=== PATIENT | female | born 1930 | race Caucasian/White ===

== ENCOUNTER 2019-10-31 19:04 | Inpatient (IN) | payer MEDICARE ==
--- NOTE | 2019-10-31 19:31 | ER Document Report ---
ED Medical Screen (RME) - General Chief Complaint: Shortness Of Breath Stated Complaint: DIZZY,SHOULDER PAIN,WEAKNESS Time Seen by Provider: 10/31/19 19:24 Mode of Arrival: Ambulatory Information source: Patient Notes: 89-year-old female presented to ED for complaint of body aches chills sweats and short of breath. She states she was having pain in both shoulders but that is resolved now. She does have a history of A. fib COPD high blood pressure and cholesterol. She states she did take Tylenol that might be why her shoulder is no longer hurt. She is alert oriented respirations regular nonlabored speaking in full sentences. Her daughter states that they think she might be a little dehydrated. Her daughter states that the daughter's was home with her today and stated that she has been sleepy all day and has not been able to stay awake. I have greeted and performed a rapid initial assessment of this patient. A comprehensive ED assessment and evaluation of the patient, analysis of test results and completion of medical decision making process will be conducted by an additional ED providers. Physical Exam - Vital signs Vitals: Temp Pulse Resp BP Pulse Ox 97.8 F 97 16 86/47 L 92 10/31/19 19:18 10/31/19 19:18 10/31/19 19:18 10/31/19 19:18 10/31/19 19:18 Course - Vital Signs Vital signs: Temp Pulse Resp BP Pulse Ox 97.8 F 97 16 86/47 L 92 10/31/19 19:18 10/31/19 19:18 10/31/19 19:18 10/31/19 19:18 10/31/19 19:18
[2019-10-31 20:29] LABS: ABSOLUTE EOSINOPHILS # (AUTO) 0.1 10^3/uL (0.0-0.6); ABSOLUTE LYMPHOCYTES (AUTO) 0.7 10^3/uL (0.5-4.7); ABSOLUTE MONOCYTES (AUTO) 0.8 10^3/uL (0.1-1.4); ABSOLUTE NEUT (AUTO) 6.7 10^3/uL (1.7-8.2); BASOPHILS % (AUTO) 0.3 % (0-2); HEMATOCRIT 36.6 % (36.0-47.0); HEMOGLOBIN 12.4 g/dL (12.0-15.5); LYMPHOCYTES % (AUTO) 8.2 % (13-45); MEAN CORPUSCULAR HEMOGLOBIN 31.6 pg (27.0-33.4); MEAN CORPUSCULAR HGB CONC 33.9 g/dL (32.0-36.0); MEAN CORPUSCULAR VOLUME 93 fl (80-97); PLATELET COUNT 121 10^3/uL (150-450); RED BLOOD COUNT 3.93 10^6/uL (3.72-5.28); RED CELL DISTRIBUTION WIDTH 12.4 % (11.5-14.0); SEGMENTED NEUTROPHILS % (AUTO) 80.5 % (42-78); TOTAL CELLS COUNTED % (AUTO) 100 %; WHITE BLOOD COUNT 8.4 10^3/uL (4.0-10.5)
--- NOTE | 2019-10-31 20:30 | RADIOLOGY REPORT (SQ) ---
EXAM DESCRIPTION: XR CHEST 2 VIEWS COMPLETED DATE/TME: 10/31/2019 19:34 CLINICAL HISTORY: 89 years, Female, short of breath COMPARISON: None. NUMBER OF VIEWS: Two TECHNIQUE: Frontal and lateral radiographs were acquired LIMITATIONS: None. FINDINGS: Cardiac pericardial silhouette appears slightly enlarged. Mediastinal contours are normal. Bandlike opacity is noted about the retrocardiac left lower lobe, likely indicating atelectasis or scar. Lungs are otherwise clear. No pleural effusion or pneumothorax. There is mild S-shaped curvature of the thoracolumbar spine. Postsurgical changes of right reverse total shoulder arthroplasty are noted. IMPRESSION: No acute disease. copyright 2010 [employer]- All Rights Reserved
[2019-10-31 20:39] LABS: INTERNATIONAL RATION (INR) 2.03; PROTHROMBIN TIME 23.2 SEC (11.4-15.4)
[2019-10-31 20:40] LABS: PARTIAL THROMBOPLASTIN TIME 41.4 SEC (23.5-35.8)
[2019-10-31 20:52] LABS: ALBUMIN 3.4 g/dL (3.5-5.0); ALKALINE PHOSPHATASE 94 U/L (38-126); ANION GAP 12 (5-19); ASPARTATE AMINO TRANSFERASE 45 U/L (14-36); BILIRUBIN,DIRECT 0.4 mg/dL (0.0-0.4); BILIRUBIN,TOTAL 0.6 mg/dL (0.2-1.3); BLOOD UREA NITROGEN 59 mg/dL (7-20); CALCIUM 10.3 mg/dL (8.4-10.2); CARBON DIOXIDE 26 mmol/L (22-30); CHLORIDE 97 mmol/L (98-107); GLUCOSE 123 mg/dL (75-110); POTASSIUM 4.5 mmol/L (3.6-5.0); TOTAL PROTEIN 6.6 g/dL (6.3-8.2)
[2019-10-31] MEDS ORDERED: NORMAL SALINE 1000 ML 1,000 ML IV ONE ×2 (21:01→21:50)
--- NOTE | 2019-10-31 21:03 | ER Document Report ---
ED General - General Chief Complaint: Shortness Of Breath Stated Complaint: DIZZY,SHOULDER PAIN,WEAKNESS Time Seen by Provider: 10/31/19 19:24 Mode of Arrival: Ambulatory - HPI Notes: Patient is an 89-year-old female, visiting her daughter from [place], who presents to the emergency department for evaluation of generalized weakness, fatigue. She is complained of some pain in her shoulders and neck, has been taking Tylenol week for them. According to family she has been very fatigued, they even had trouble keeping her awake today. She had nausea with one episode of emesis a few days ago. Otherwise she is unaware of any fevers or chills. No coughing or shortness of breath, although daughter states she was complaining of shortness of breath earlier today. Normal bowel movements. No cuts or rashes. She is been on the same medications for quite some time. She states her blood pressure usually runs in the 120s. - Related Data Allergies/Adverse Reactions: Penicillins Allergy (Verified 10/31/19 19:31) Home Medications: Eliquis 5 mg daily. Potassium 20 mEq daily. Atenolol 25 mg in the morning, 12 and half milligrams in the afternoon. Lasix 20 mg daily. Lisinopril 20 mg twice daily. Zocor 20 mg a day bedtime. Synthroid 50 mcg daily. Calcium 600 mg daily. Multivitamin daily Past Medical History - General Information source: Patient, Relative - Social History Smoking Status: Never Smoker Frequency of alcohol use: None Drug Abuse: None Family History: Reviewed & Not Pertinent Patient has suicidal ideation: No Patient has homicidal ideation: No - Past Medical History Cardiac Medical History: Reports: Hx Hypercholesterolemia, Hx Hypertension Pulmonary Medical History: Reports: Hx COPD Endocrine Medical History: Reports: Hx Hypothyroidism Malignancy Medical History: Reports: None GI Medical History: Reports: None Musculoskeletal Medical History: Reports Hx Arthritis Past Surgical History: Reports: Other - Partial thyroidectomy Review of Systems - Review of Systems Constitutional: See HPI EENT: No symptoms reported Cardiovascular: No symptoms reported Respiratory: No symptoms reported Gastrointestinal: See HPI Genitourinary: No symptoms reported Musculoskeletal: See HPI Skin: No symptoms reported Neurological/Psychological: No symptoms reported Physical Exam - Vital signs Vitals: Temp Pulse Resp BP Pulse Ox 97.8 F 97 16 86/47 L 92 10/31/19 19:18 10/31/19 19:18 10/31/19 19:18 10/31/19 19:18 10/31/19 19:18 - Notes Notes: This is a very pleasant 89-year-old female who appears younger than her stated age, no acute distress. Vital signs reviewed, please refer to chart. Head is normocephalic, atraumatic. Pupils equal round, reactive to light. Neck is supple without meningismus. Heart is regular rate and rhythm. Lungs are clear to auscultation bilaterally. Abdomen is soft, nontender, normoactive bowel sounds throughout. Extremities without cyanosis, clubbing. Posterior calves are nontender. Peripheral pulses are equal. Skin is warm and dry. Patient is awake, alert, neurological exam is nonfocal. Course - Re-evaluation Re-evalutation: 10/31/19 21:51 Patient presents emergency department for evaluation. She is complaining of increased fatigue, had nausea with one episode of emesis earlier in the week. Her blood pressure was low on presentation. My primary concern that this p atient was septic. Septic work-up added to existing lab work is ordered. Patient is found to have a significant urinary tract infection, elevated lactate, and acute renal failure. I went back and verify with the patient and their mother that she does not in fact have any history of renal insufficiency. They again states that she does not. Patient is given IV fluids. She given ceftriaxone. Will contact medicine for admission. 11/01/19 01:[address] Spencer in regards to this patient. He was concerned, given the amount of blood in her urine, that she could still have some sort of obstructive uropathy or other etiology that could be responsible for her symptoms. CT scan failed to reveal any acute findings. I discussed this patient again with him given CT results. He accepted her to [facility] for further care. 11/01/19 06:00 Patient was awaiting a bed in the [facility]. I was notified by nursing that patient's pressures have been borderline. She received a total of 4 L, Dr. Spencer was keeping updated. I went to evaluate the patient, she was still mentating well. Bird catheter was placed. At one point, patient's blood pressure read 76/24. At that point, decision was made that central line was needed urgently to start pressor therapy. I explained to procedure to the patient in great detail. Consent was sought, questions were answered. Consent was signed and placed on the chart, please see separate procedure note. Patient is now to be admitted to the ICU. - Vital Signs Vital signs: Temp Pulse Resp BP Pulse Ox 98.0 F 97 22 H 80/42 L 94 11/01/19 02:42 10/31/19 19:18 11/01/19 04:00 11/01/19 04:00 11/01/19 04:00 - Laboratory Result Diagrams: 10/31/19 20:15 10/31/19 20:15 Laboratory results interpreted by me: 10/31/19 10/31/19 10/31/19 20:15 20:15 20:15 Plt Count 121 L Lymph % (Auto) 8.2 L Seg Neutrophils % 80.5 H PT 23.2 H APTT 41.4 H Sodium 135.3 L Chloride 97 L BUN 59 H Creatinine 3.20 H Est GFR ( Amer) 17 L Est GFR (MDRD) Non-Af 14 L Glucose 123 H Lactic Acid Calcium 10.3 H AST 45 H Albumin 3.4 L Urine Protein Urine Blood Ur Leukocyte Esterase 10/31/19 10/31/19 20:33 23:19 Plt Count Lymph % (Auto) Seg Neutrophils % PT APTT Sodium Chloride BUN Creatinine Est GFR ( Amer) Est GFR (MDRD) Non-Af Glucose Lactic Acid 2.4 H Calcium AST Albumin Urine Protein 100 H Urine Blood LARGE H Ur Leukocyte Esterase LARGE H Procedures - Central Line Right Internal jugular Time completed: 05:40 Consent obtained: Yes Central line pre-insertion: Sterile PPE donned, Chloraprep applied, Sterile d rapes applied Central line lumen type: Triple Anesthetic type: 1% Lidocaine mL's of anesthesia: 3 Ultrasound guided: Yes Line secured with sutures: Yes Central line post-insertion: Blood return from lumens, Sutured, Sterile dressing applied, Position confirmed w/ CXR Number of attempts: 1 Complications: No Notes: 11/01/19 06:19 Indications for central line were explained in great detail. Questions were sought and answered. Consent was signed and placed on the chart. The area was prepped and draped in the usual sterile fashion. Using 1% lidocaine, I anesthetized the area overlying the right internal jugular vein with approximately 3 cc of lidocaine. Once adequate analgesia was achieved, the finder needle was advanced and the internal jugular vein was cannulated. Dark blood, nonpulsatile flow was obtained. The guidewire was advanced. Using an 11 blade, small brandon was placed at the skin. The dilator was placed over the wire. All ports of the central line were flushed, the/central line was then advanced over the guidewire. All ports were then flushed and found to get good drawback. The line was advanced to 15 cm, it was then sewn into place. Adhesive dressing was placed as well. Post procedure chest x-ray was performed, interpreted by myself without the very urologist as showing line in place in the superior vena cava/right atrium and no signs of lung injury. Patient tolerated the procedure well. Critical Care Note - Critical Care Note Total time excluding time spent on procedures (mins): 50 Discharge - Discharge Clinical Impression: Urinary tract infection Qualifiers: Urinary tract infection type: acute cystitis Hematuria presence: with hematuria Qualified Code(s): N30.01 - Acute cystitis with hematuria Sepsis Qualifiers: Sepsis type: sepsis due to unspecified organism Sepsis acute organ dysfunction status: with acute organ dysfunction Severe sepsis acute organ dysfunction type: acute renal failure Severe sepsis shock status: without septic shock Acute renal failure Qualifiers: Acute renal failure type: unspecified Qualified Code(s): N17.9 - Acute kidney failure, unspecified Condition: Stable Disposition: ADMITTED INPATIENT Admitting Provider: Tj (Hospitalist) Unit Admitted: [facility]
[2019-10-31 21:44] LABS: APPEARANCE,URINE CLOUDY; BILIRUBIN,URINE NEGATIVE (NEGATIVE); COLOR,URINE AMBER; GLUCOSE, URINE NEGATIVE (NEGATIVE); KETONES,URINE NEGATIVE (NEGATIVE); LEUKOCYTE ESTERASE,URINE LARGE (NEGATIVE); NITRITE,URINE NEGATIVE (NEGATIVE); PROTEIN,URINE 100 mg/dL (NEGATIVE); URINE SPECIFIC GRAVITY 1.023; UROBILINOGEN,URINE NEGATIVE mg/dL (<2.0)
[2019-10-31] MEDS ORDERED: NORMAL SALINE 1000 ML 500 ML IV ONE (21:50)
[2019-10-31] MEDS ORDERED: CEFTRIAXONE 1 GM/D5W RTU 1 GM/50 ML RTUPB IV ONE (21:51)
--- NOTE | 2019-11-01 01:02 | RADIOLOGY REPORT (SQ) ---
CT ABDOMEN PELVIS WITHOUT IV CONTRAST EXAM DATE: 10/31/2019 10:31 PM ROOM SERVER HISTORY: Flank pain. COMPARISON: None. TECHNIQUE: CT scan of the abdomen and pelvis was performed without IV contrast. This exam was performed according to our departmental dose-optimization program, which includes automated exposure control, adjustment of the mA and/or kV according to patient size and/or use of iterative reconstruction technique. FINDINGS: The lung bases are clear. No pleural or pericardial effusions. There is a large sliding hiatal hernia. There are multiple calcified granulomas in the spleen. The liver, gallbladder, pancreas, and adrenal glands are unremarkable. The kidneys are also unremarkable without hydronephrosis or urinary stones. There has been a prior hysterectomy. Normal bladder. There are scattered colonic diverticula without surrounding inflammatory changes. No small bowel obstruction. Appendix is not clearly identified. No intraperitoneal free fluid or free air is seen. The aorta is normal caliber and contains atherosclerotic calcifications. There are mild degenerative changes of the spine. No abnormal body wall hernia. IMPRESSION: 1. No urinary stones or hydronephrosis. 2. Large sliding hiatal hernia. 3. Diverticulosis without inflammatory changes.
[2019-11-01] MEDS ORDERED: IPRATROPIUM/ALBUTEROL 0.5-2.5 MG/3 ML AMPUL NEB PRN (01:13)
[2019-11-01] MEDS ORDERED: MAG HYDROX/AL HYDROX/SIMETH SUSP 30 ML UDCUP PO PRN (01:13)
[2019-11-01] MEDS ORDERED: NORMAL SALINE 1000 ML 1,000 ML IV PRN (01:15)
[2019-11-01] MEDS ORDERED: METOPROLOL TARTRATE PF/INJ 5 MG/5 ML SDV IV PRN (03:13)
--- NOTE | 2019-11-01 03:21 | PDOC H&P ---
History of Present Illness Admission Date/PCP: 11/01/19 01:23 Patient complains of: Weakness History of Present Illness: MONICA KNUTSON is a 89 year old female with a past medical history of hypothyroidism, hypertension atrial fibrillation on Eliquis. Patient presents with 48 hours of generalized weakness and lethargy prompting evaluation emergency room where she is found to have hypotension with a systolic pressure in the 80s, pyuria and acute renal failure. She started on empiric antibiotics and referred to the hospitalist for admission. Patient denies recent antibiotic use she admits to urgency and increased frequency of urination. She denies shor tness of breath or chest pain. She receives 3 L of normal saline and 1 g of Rocephin improving her blood pressure she admittedly feels better and admitted to the hospitalist for admission. Past Medical History Cardiac Medical History: Reports: Atrial Fibrillation, Hyperlipidema, Hypertension Pulmonary Medical History: Reports: Chronic Obstructive Pulmonary Disease (COPD) Endocrine Medical History: Reports: Hypothyroidism Malignancy Medical History: Reports: None GI Medical History: Reports: None Musculoskeltal Medical History: Reports: Arthritis Past Surgical History Past Surgical History: Reports: Hysterectomy, Orthopedic Surgery - shoulders/ wrists, Other - Partial thyroidectomy Social History Information Source: Patient, [facility] Records Smoking Status: Never Smoker Frequency of Alcohol Use: None Drugs: None - Advance Directive Resuscitation Status: Full Code Family History Family History: Hypertension Parental Family History Reviewed: Yes Children Family History Reviewed: Yes Sibling(s) Family History Reviewed.: Yes Medication/Allergy Allergies/Adverse Reactions: Penicillins Allergy (Verified 10/31/19 19:31) Review of Systems Constitutional: ABSENT: chills, fever(s), headache(s), weight gain, weight loss Eyes: ABSENT: visual disturbances Ears: ABSENT: hearing changes Cardiovascular: ABSENT: chest pain, dyspnea on exertion, edema, orthropnea, palpitations Respiratory: ABSENT: cough, hemoptysis Gastrointestinal: ABSENT: abdominal pain, constipation, diarrhea, hematemesis, hematochezia, nausea, vomiting Genitourinary: ABSENT: dysuria, hematuria Musculoskeletal: ABSENT: joint swelling Integumentary: ABSENT: rash, wounds Neurological: ABSENT: abnormal gait, abnormal speech, confusion, dizziness, focal weakness, syncope Psychiatric: ABSENT: anxiety, depression, homidical ideation, suicidal ideation Endocrine: ABSENT: cold intolerance, heat intolerance, polydipsia, polyuria Hematologic/Lymphatic: ABSENT: easy bleeding, easy bruising Physical Exam Vital Signs: Temp Pulse Resp BP Pulse Ox 98.0 F 97 23 H 90/40 L 93 11/01/19 02:42 10/31/19 19:18 11/01/19 02:42 11/01/19 02:42 11/01/19 02:42 Intake & Output 10/30/19 10/31/19 11/01/19 11:59 11:59 11:59 Intake Total 2550 Balance 2550 Weight 78.6 kg General appearance: PRESENT: no acute distress, cooperative, well-developed, w ell-nourished Head exam: PRESENT: atraumatic, normocephalic Eye exam: PRESENT: conjunctiva pink, EOMI, PERRLA. ABSENT: scleral icterus Ear exam: PRESENT: normal external ear exam Mouth exam: PRESENT: dry mucosa, tongue midline Neck exam: ABSENT: carotid bruit, JVD, lymphadenopathy, thyromegaly Respiratory exam: PRESENT: clear to auscultation sim. ABSENT: rales, rhonchi, wheezes Cardiovascular exam: PRESENT: irregular rhythm. ABSENT: diastolic murmur, rubs, systolic murmur Pulses: PRESENT: normal dorsalis pedis pul Vascular exam: PRESENT: normal capillary refill GI/Abdominal exam: PRESENT: normal bowel sounds, soft. ABSENT: distended, guar ding, mass, organolmegaly, rebound, tenderness Rectal exam: PRESENT: deferred Extremities exam: PRESENT: full ROM. ABSENT: calf tenderness, clubbing, pedal edema Neurological exam: PRESENT: alert, awake, oriented to person, oriented to place, oriented to time, oriented to situation, CN II-XII grossly intact. ABSENT: motor sensory deficit Psychiatric exam: PRESENT: appropriate affect, normal mood. ABSENT: homicidal ideation, suicidal ideation Skin exam: PRESENT: dry, intact, warm. ABSENT: cyanosis, rash Results Laboratory Results: 10/31/19 20:15 10/31/19 20:15 10/31/19 10/31/19 10/31/19 20:15 20:15 20:32 WBC 8.4 RBC 3.93 Hgb 12.4 Hct 36.6 MCV 93 MCH 31.6 MCHC 33.9 RDW 12.4 Plt Count 121 L Seg Neutrophils % 80.5 H Sodium 135.3 L Potassium 4.5 Chloride 97 L Carbon Dioxide 26 Anion Gap 12 BUN 59 H Creatinine 3.20 H Est GFR ( Amer) 17 L Glucose 123 H Lactic Acid 2.1 Calcium 10.3 H Total Bilirubin 0.6 AST 45 H Alkaline Phosphatase 94 Total Protein 6.6 Albumin 3.4 L Urine Color Urine Appearance Urine pH Ur Specific Hurt Urine Protein Urine Glucose (UA) Urine Ketones Urine Blood Urine Nitrite Ur Leukocyte Esterase Urine WBC (Auto) Urine RBC (Auto) 10/31/19 10/31/19 20:33 23:19 WBC RBC Hgb Hct MCV MCH MCHC RDW Plt Count Seg Neutrophils % Sodium Potassium Chloride Carbon Dioxide Anion Gap BUN Creatinine Est GFR ( Amer) Glucose Lactic Acid 2.4 H Calcium Total Bilirubin AST Alkaline Phosphatase Total Protein Albumin Urine Color CHASITY Urine Appearance CLOUDY Urine pH 5.0 Ur Specific Hurt 1.023 Urine Protein 100 H Urine Glucose (UA) NEGATIVE Urine Ketones NEGATIVE Urine Blood LARGE H Urine Nitrite NEGATIVE Ur Leukocyte Esterase LARGE H Urine WBC (Auto) >182 Urine RBC (Auto) >182 10/31/19 20:15 Troponin I 0.072 Impressions: Chest X-Ray 10/31/19 19:34 IMPRESSION: No acute disease. copyright 2010 [employer]- All Rights Reserved Abdomen/Pelvis CT 10/31/19 22:31 IMPRESSION: 1. No urinary stones or hydronephrosis. 2. Large sliding hiatal hernia. 3. Diverticulosis without inflammatory changes. Assessment and Plan - Diagnosis (1) Urinary tract infection Qualifiers: Urinary tract infection type: acute cystitis Hematuria presence: with hematuria Qualified Code(s): N30.01 - Acute cystitis with hematuria Is this a current diagnosis for this admission?: Yes Plan: No evidence of Aristides or obstruction or abscess. Empiric antibiotics initiated. Follow-up blood and urine culture (2) Sepsis Qualifiers: Sepsis type: sepsis due to unspecified organism Sepsis acute organ dysfunction status: with acute organ dysfunction Severe sepsis acute organ dysfunction type: acute renal failure Severe sepsis shock status: without septic shock Is this a current diagnosis for this admission?: Yes Plan: IV fluid challenge, pressors as needed, follow-up lactic acid blood and urine culture. (3) Atrial fibrillation Qualifiers: Atrial fibrillation type: longstanding persistent Qualified Code(s): I48.11 - Longstanding persistent atrial fibrillation Is this a current diagnosis for this admission?: Yes Plan: Rate controlled, Lopressor as needed, Eliquis held secondary to renal failure. Heparin ordered. (4) Acute renal failure Qualifiers: Acute renal failure type: unspecified Qualified Code(s): N17.9 - Acute kidney failure, unspecified Is this a current diagnosis for this admission?: Yes Plan: Likely secondary to #1 with sepsis complicated by prerenal state and Eliquis. IV fluid challenge, avoid nephrotoxic meds and doses follow-up chemistry - Time Time Spent with patient: 25-34 minutes - Inpatient Certification Based on my medical assessment, after consideration of the patient's comorbidities, presenting symptoms, or acuity I expect that the services needed warrant INPATIENT care.: Yes I certify that my determination is in accordance with my understanding of Medicare's requirements for reasonable and necessary INPATIENT services [42 CFR 412.3e].: Yes Medical Necessity: Need Close Monitoring Due to Risk of Patient Decompensation
[2019-11-01] MEDS ORDERED: NORMAL SALINE 1000 ML 1,000 ML IV ONE (04:00)
[2019-11-01] MEDS ORDERED: VANCOMYCIN HCL INJ 1000 MG VIAL IV PRN (05:32)
[2019-11-01] MEDS ORDERED: DEXTROSE 5%-WATER 250 ML with NOREPINEPHRINE BITARTRATE 4 MG IV PRN ×2 (05:37)
[2019-11-01] MEDS ORDERED: NOREPINEPHRINE BITARTRATE INJ/PF 4 MG/4 ML SDV IV ONE (05:52)
[2019-11-01] MEDS ORDERED: VANCOMYCIN HCL 1,250 MG in DEXTROSE 5%-WATER 250 ML IV ONE (06:00)
--- NOTE | 2019-11-01 06:51 | RADIOLOGY REPORT (SQ) ---
Chest one view on 11/01/2019 at 6:16 AM CLINICAL INDICATION: Central line placement COMPARISON: 10/31/2019 FINDINGS: Right IJ catheter tip is in the SVC. There is no pneumothorax. Cardiomegaly is noted. Vascular calcification is noted in the aorta. The lungs are clear. Pulmonary vascularity is within normal limits. The patient is status post right shoulder arthroplasty. IMPRESSION: No acute disease.
[2019-11-01 07:55] LABS: HEMATOCRIT 30.8 % (36.0-47.0); HEMOGLOBIN 10.4 g/dL (12.0-15.5); MEAN CORPUSCULAR HEMOGLOBIN 31.7 pg (27.0-33.4); MEAN CORPUSCULAR HGB CONC 33.8 g/dL (32.0-36.0); MEAN CORPUSCULAR VOLUME 94 fl (80-97); RED BLOOD COUNT 3.28 10^6/uL (3.72-5.28); RED CELL DISTRIBUTION WIDTH 12.8 % (11.5-14.0); WHITE BLOOD COUNT 7.9 10^3/uL (4.0-10.5)
[2019-11-01 07:57] LABS: INTERNATIONAL RATION (INR) 1.91; PROTHROMBIN TIME 22.1 SEC (11.4-15.4)
[2019-11-01 08:18] LABS: ANION GAP 9 (5-19); BLOOD UREA NITROGEN 46 mg/dL (7-20); CALCIUM 8.2 mg/dL (8.4-10.2); CARBON DIOXIDE 22 mmol/L (22-30); CHLORIDE 106 mmol/L (98-107); GLUCOSE 116 mg/dL (75-110); POTASSIUM 4.2 mmol/L (3.6-5.0)
[2019-11-01 08:25] LABS: PLATELET COUNT 91 10^3/uL (150-450)
[2019-11-01 08:26] LABS: ABSOLUTE LYMPHOCYTES# (MANUAL) 0.8 10^3/uL (0.5-4.7); ABSOLUTE MONOCYTES # (MANUAL) 1.3 10^3/uL (0.1-1.4); BAND NEUTROPHILS % (MANUAL) 2 % (3-5); BASOPHILS % (MANUAL) 0 % (0-2); EOSINOPHILS % (MANUAL) 0 % (0-6); LYMPHOCYTES % (MANUAL) 8 % (13-45); MONOCYTES % (MANUAL) 16 % (3-13); SEGMENTED NEUTROPHILS % (MAN) 72 % (42-78); TOTAL CELLS COUNTED 100
[2019-11-01 08:27] LABS: TOXIC VACUOLATION PRESENT
[2019-11-01 08:28] LABS: OVALOCYTES SLIGHT; PLATELET COMMENT DECREASED; POIKILOCYTOSIS SLIGHT
[2019-11-01] MEDS ORDERED: RINGERS SOLUTION,LACTATED 1,000 ML IV PRN (08:40)
[2019-11-01] MEDS: ACETAMINOPHEN 325 MG TABLET PO PRN ×3 (09:20→20:45)
--- NOTE | 2019-11-01 11:54 | CRITICAL CARE ADMISSION REPORT ---
HPI Date:: 11/01/19 - Critical Care Attending Reason for ICU Reason:: severe sepsis, ROMEL, UTI HPI: Pt is an 89 yo woman with afib, HTN, COPD, hypothyroidism who is from [place] and is here visiting her daughter. She presented to the ED c/o weakness, malaise, and nausea. In the ED, she was found to be hypotensive. SHe was also found to have ROMEL and a UTI. SHe was given several liters of IVF and was started on rocephin. She was initially scheduled to be admitted to the ICU, but she became hypotens claudette again. The ED physician then inserted a central line and ordered leveophed. Upon my evaluation of the pt in the ED, she was awake and alert. Her SBP was in the 120s. She stated that she felt better, but c/o discomfort on the right side of her neck where the TLC was inserted. SHe denies any F/C/CP/SOA. Her daughter was at the bedside. - Diagnosis/Plan (1) Septic shock Is this a current diagnosis for this admission?: Yes (2) E coli bacteremia Is this a current diagnosis for this admission?: Yes (3) E. coli UTI Is this a current diagnosis for this admission?: Yes (4) Acute renal failure Qualifiers: Acute renal failure type: unspecified Qualified Code(s): N17.9 - Acute kidney failure, unspecified Is this a current diagnosis for this admission?: Yes (5) Atrial fibrillation Qualifiers: Atrial fibrillation type: longstanding persistent Qualified Code(s): I48.11 - Longstanding persistent atrial fibrillation (6) Thrombocytopenia Is this a current diagnosis for this admission?: Yes Past Medical History Cardiac Medical History: Reports: Atrial Fibrillation, Hyperlipidema, Hypertension Pulmonary Medical History: Reports: Chronic Obstructive Pulmonary Disease (COPD) Endocrine Medical History: Reports: Hypothyroidism Malignancy Medical History: Reports: None GI Medical History: Reports: None Musculoskeltal Medical History: Reports: Arthritis Past Surgical History Past Surgical History: Reports: Hysterectomy, Orthopedic Surgery - shoulders/ wrists, Other - Partial thyroidectomy Social/Family History - Social History Smoking Status: Never Smoker Frequency of Alcohol Use: None Drugs: None - Medication/Allergies Home Medications: Apixaban [Eliquis 5 mg Tablet] 5 mg PO Q12 11/01/19 Atenolol [Tenormin] 12.5 mg PO NOON 11/01/19 Atenolol [Tenormin] 25 mg PO QAM 11/01/19 Calcium Carbonate [Calcium] 600 mg PO Q12 11/01/19 Furosemide [Lasix 20 mg Tablet] 20 mg PO DAILY 11/01/19 Levothyroxine Sodium 50 mcg PO Q6AM 11/01/19 Lisinopril [Zestril] 20 mg PO Q12 11/01/19 Multivitamin [Multiple Vitamins] 1 tab PO DAILY 11/01/19 Potassium Chloride [Klor-Con M20] 20 meq PO DAILY 11/01/19 Simvastatin 20 mg PO QHS 11/01/19 Allergies/Adverse Reactions: Penicillins Allergy (Verified 10/31/19 19:31) Physical Exam Vital Signs: Temp Pulse Resp BP Pulse Ox 101.5 F H 92 18 153/79 H 97 11/01/19 09:38 11/01/19 09:38 11/01/19 09:38 11/01/19 09:38 11/01/19 09:38 Intake & Output 10/31/19 11/01/19 11/02/19 06:59 06:59 06:59 Intake Total 3550 1250 Balance 3550 1250 Weight 78.6 kg 82.1 kg Weight/Height Weight 82.1 kg Height 4 ft 11 in General appearance: PRESENT: no acute distress, well-developed, well-nourished, other - awake,alert, NAD Head exam: PRESENT: atraumatic, normocephalic Respiratory exam: PRESENT: clear to auscultation sim, unlabored Cardiovascular exam: PRESENT: irregular rhythm, systolic murmur GI/Abdominal exam: PRESENT: soft, other - NTND, no rebound, no guarding Extremities exam: PRESENT: other - no edema Musculoskeletal exam: PRESENT: normal inspection Neurological exam: PRESENT: alert, awake Laboratory/Radiographs Laboratory Results: 11/01/19 07:37 11/01/19 07:37 10/31/19 10/31/19 10/31/19 20:15 20:15 20:32 WBC 8.4 RBC 3.93 Hgb 12.4 Hct 36.6 MCV 93 MCH 31.6 MCHC 33.9 RDW 12.4 Plt Count 121 L Seg Neutrophils % 80.5 H Sodium 135.3 L Potassium 4.5 Chloride 97 L Carbon Dioxide 26 Anion Gap 12 BUN 59 H Creatinine 3.20 H Est GFR ( Amer) 17 L Glucose 123 H Lactic Acid 2.1 Calcium 10.3 H Total Bilirubin 0.6 AST 45 H Alkaline Phosphatase 94 Total Protein 6.6 Albumin 3.4 L Urine Color Urine Appearance Urine pH Ur Specific [place] Urine Protein Urine Glucose (UA) Urine Ketones Urine Blood Urine Nitrite Ur Leukocyte Esterase Urine WBC (Auto) Urine RBC (Auto) 10/31/19 10/31/19 11/01/19 20:33 23:19 07:37 WBC 7.9 RBC 3.28 L Hgb 10.4 L Hct 30.8 L MCV 94 MCH 31.7 MCHC 33.8 RDW 12.8 Plt Count 91 L Seg Neutrophils % Not Reportable Sodium Potassium Chloride Carbon Dioxide Anion Gap BUN Creatinine Est GFR ( Amer) Glucose Lactic Acid 2.4 H Calcium Total Bilirubin AST Alkaline Phosphatase Total Protein Albumin Urine Color CHASITY Urine Appearance CLOUDY Urine pH 5.0 Ur Specific [place] 1.023 Urine Protein 100 H Urine Glucose (UA) NEGATIVE Urine Ketones NEGATIVE Urine Blood LARGE H Urine Nitrite NEGATIVE Ur Leukocyte Esterase LARGE H Urine WBC (Auto) >182 Urine RBC (Auto) >182 11/01/19 11/01/19 07:37 07:37 WBC RBC Hgb Hct MCV MCH MCHC RDW Plt Count Seg Neutrophils % Sodium 136.9 L Potassium 4.2 Chloride 106 Carbon Dioxide 22 Anion Gap 9 BUN 46 H Creatinine 2.21 H Est GFR ( Amer) 25 L Glucose 116 H Lactic Acid 0.9 Calcium 8.2 L Total Bilirubin AST Alkaline Phosphatase Total Protein Albumin Urine Color Urine Appearance Urine pH Ur Specific [place] Urine Protein Urine Glucose (UA) Urine Ketones Urine Blood Urine Nitrite Ur Leukocyte Esterase Urine WBC (Auto) Urine RBC (Auto) 10/31/19 20:32 Blood Blood Culture (PCR) - Final Escherichia Coli 10/31/19 21:43 Blood Blood Culture (PCR) - Final Escherichia Coli 10/31/19 20:15 Troponin I 0.072 Impressions: Abdomen/Pelvis CT 10/31/19 22:31 IMPRESSION: 1. No urinary stones or hydronephrosis. 2. Large sliding hiatal hernia. 3. Diverticulosis without inflammatory changes. Chest X-Ray 11/01/19 00:00 IMPRESSION: No acute disease. EKG: EKG: afib All labs, radiographs, diagnostic studies and EKGs were personally reviewed: Yes Critical Time Critical Time (minutes): 45 -: The care of a critically ill patient is dynamic. This note represents a static moment in the admission process. Orders and treatments may be given sim ultaneously and urgently, and time is not career representative of the treatment process. This patient requires Critical Care secondary to life threatening organ or limb dysfunction. Without Critical Care services, the patient is at risk for increased mortality and morbidity. Provider Note Provider Note: Assessment: Critically ill 89 yo woman with septic shock, E.coli bacteremia and UTI, ROMEL, afib. Plan: 1. Respiratory: stable on nasal cannula 2. CV: hypotension due to septic shock. Continue IVF and start levophed if indicated. Afib, rate controlled. Home atenolol held for hypotension 3. ID: E.coli bacteremia and UTI. Day 1 Rocephin. Adjust ATBX pending sensitivities 4. Renal: ROMEL due to hypotension from septic shock. Continue IVF. Hold home lasix and [place] inhibitor 5. Heme: on eliquis at home for afib. On hold due to ROMEL. Pt also with thromobcytopenia. Will avoid heparin products 6. Endocrine: monitor blood sugars. Hypothyroidism. Continue synthroid. Check TSH 7. Nutrition: cardiac diet 8. Prophylaxis: Scds. No pharmacologic DVT prophylaxis due to thrombocytopenia.
--- NOTE | 2019-11-01 14:30 | EKG REPORT ---
SEVERITY:- ABNORMAL ECG - ATRIAL FIBRILLATION, V-RATE 75-123 VENTRICULAR PREMATURE COMPLEX PROBABLE INFERIOR INFARCT, AGE INDETERMINATE CONSIDER ANTERIOR INFARCT : Confirmed by: Suzi Sanches 01-Nov-2019 14:29:23
[2019-11-01] MEDS: CEFTRIAXONE 1 GM/D5W RTU 1 GM/50 ML RTUPB IV SCH (21:10)
[2019-11-02 01:50] LABS: INTERNATIONAL RATION (INR) 1.48; PROTHROMBIN TIME 18.1 SEC (11.4-15.4)
[2019-11-02 04:07] LABS: HEMATOCRIT 30.7 % (36.0-47.0); HEMOGLOBIN 10.5 g/dL (12.0-15.5); MEAN CORPUSCULAR HEMOGLOBIN 31.6 pg (27.0-33.4); MEAN CORPUSCULAR HGB CONC 34.2 g/dL (32.0-36.0); MEAN CORPUSCULAR VOLUME 92 fl (80-97); PLATELET COUNT 113 10^3/uL (150-450); RED BLOOD COUNT 3.32 10^6/uL (3.72-5.28); RED CELL DISTRIBUTION WIDTH 12.8 % (11.5-14.0); WHITE BLOOD COUNT 8.9 10^3/uL (4.0-10.5)
[2019-11-02 04:18] LABS: ANION GAP 7 (5-19); BLOOD UREA NITROGEN 35 mg/dL (7-20); CALCIUM 7.9 mg/dL (8.4-10.2); CARBON DIOXIDE 23 mmol/L (22-30); CHLORIDE 106 mmol/L (98-107); GLUCOSE 89 mg/dL (75-110)
[2019-11-02 04:34] LABS: ABSOLUTE LYMPHOCYTES# (MANUAL) 1.3 10^3/uL (0.5-4.7); ABSOLUTE MONOCYTES # (MANUAL) 1.6 10^3/uL (0.1-1.4); BAND NEUTROPHILS % (MANUAL) 3 % (3-5); BASOPHILS % (MANUAL) 0 % (0-2); EOSINOPHILS % (MANUAL) 1 % (0-6); LYMPHOCYTES % (MANUAL) 15 % (13-45); MONOCYTES % (MANUAL) 18 % (3-13); SEGMENTED NEUTROPHILS % (MAN) 63 % (42-78); TOTAL CELLS COUNTED 100
[2019-11-02 04:35] LABS: TOXIC GRANULATION 1+
[2019-11-02 04:36] LABS: OVALOCYTES SLIGHT; PLATELET COMMENT DECREASED; POIKILOCYTOSIS SLIGHT; SCHISTOCYTES SLIGHT; TEAR DROP CELLS SLIGHT; TOXIC VACUOLATION PRESENT
[2019-11-02] MEDS: ACETAMINOPHEN 325 MG TABLET PO PRN ×3 (05:52→17:26)
[2019-11-02] MEDS: LEVOTHYROXINE SODIUM 0.05 MG TABLET PO SCH (05:52)
[2019-11-02] MEDS ORDERED: RINGERS SOLUTION,LACTATED 1,000 ML IV PRN (06:42)
[2019-11-02] MEDS ORDERED: RINGERS SOLUTION,LACTATED 1,000 ML IV ONE ×2 (08:27→08:29)
[2019-11-02] MEDS: APIXABAN 2.5 MG TABLET PO SCH ×2 (09:53→17:25)
[2019-11-02] MEDS ORDERED: NORMAL SALINE INJ/PF 0.9% 10 ML SDV IV PRN (11:11)
--- NOTE | 2019-11-02 11:40 | PDOC CRITICAL CARE PROG REPORT ---
General Date:: 11/02/19 - Critical Care Attending Note Resuscitation Status: Full Code Events in the past 12 to 24 Hours:: Pt states she feels much better. Did required levophed overnight, but it has since been discontinued. Reason for ICU Addmission:: severe sepsis, ROMEL, UTI - Medications: Medications reviewed and adjusted accordingly: Yes Physical Exam Vital Signs: Temp Pulse Resp BP Pulse Ox 100.0 F 102 H 22 H 124/88 H 100 11/02/19 08:00 11/02/19 10:00 11/02/19 10:36 11/02/19 10:36 11/02/19 10:36 Intake & Output 11/01/19 11/02/19 11/03/19 06:59 06:59 06:59 Intake Total 3550 1715 Output Total 1110 350 Balance 3550 605 -350 Weight 78.6 kg 82.1 kg Weight/Height Weight 82.1 kg Height 4 ft 11 in General appearance: PRESENT: no acute distress, well-developed, well-nourished, other - awake, alert, NAD Head exam: PRESENT: atraumatic, normocephalic Respiratory exam: PRESENT: clear to auscultation sim, unlabored Cardiovascular exam: PRESENT: irregular rhythm GI/Abdominal exam: PRESENT: soft Gentrourinary exam: PRESENT: indwelling catheter Extremities exam: PRESENT: other - trace edema Neurological exam: PRESENT: alert, awake Psychiatric exam: PRESENT: appropriate affect Laboratory/Radiographs Laboratory Results: 11/02/19 03:50 11/02/19 03:50 11/02/19 11/02/19 11/02/19 03:50 03:50 03:50 WBC 8.9 RBC 3.32 L Hgb 10.5 L Hct 30.7 L MCV 92 MCH 31.6 MCHC 34.2 RDW 12.8 Plt Count 113 L Seg Neutrophils % Not Reportable Sodium 135.7 L Potassium 4.0 Chloride 106 Carbon Dioxide 23 Anion Gap 7 BUN 35 H Creatinine 1.50 H Est GFR ( Amer) 40 L Glucose 89 Calcium 7.9 L TSH 2.66 10/31/19 21:43 Blood Blood Culture (PCR) - Final Escherichia Coli 10/31/19 20:32 Blood Blood Culture (PCR) - Final Escherichia Coli 10/31/19 20:33 Clean Catch Midstream Urine Culture - Final Escherichia Coli 10/31/19 20:15 Troponin I 0.072 Impressions: Abdomen/Pelvis CT 10/31/19 22:31 IMPRESSION: 1. No urinary stones or hydronephrosis. 2. Large sliding hiatal hernia. 3. Diverticulosis without inflammatory changes. Chest X-Ray 11/01/19 00:00 IMPRESSION: No acute disease. All labs, radiographs, diagnostic studies and EKGs were personally reviewed: Yes Assessment and Plan - Diagnosis (1) Septic shock Is this a current diagnosis for this admission?: Yes (2) E coli bacteremia Is this a current diagnosis for this admission?: Yes (3) E. coli UTI Is this a current diagnosis for this admission?: Yes (4) Acute renal failure Qualifiers: Acute renal failure type: unspecified Qualified Code(s): N17.9 - Acute kidney failure, unspecified Is this a current diagnosis for this admission?: Yes (5) Atrial fibrillation Qualifiers: Atrial fibrillation type: longstanding persistent Qualified Code(s): I48.11 - Longstanding persistent atrial fibrillation Is this a current diagnosis for this admission?: Yes (6) Thrombocytopenia Is this a current diagnosis for this admission?: Yes Plan Summary: Assessment: Critically ill 89 yo woman with septic shock, E.coli bacteremia and UTI, ROMEL, afib. Plan: 1. Respiratory: stable on nasal cannula. Wean to room air. 2. CV: hypotension,resolving. Off levophed. Continue IVF. Afib, rate controlled. Home atenolol currently being held due to hypotension 3. ID: E.coli bacteremia and UTI. Day 2 Rocephin. 4. Renal: ROMEL due to hypotension from septic shock, resolving. Continue IVF. Holding home lasix and [place] inhibitor 5. Heme: on eliquis at home for afib. Will resume today and adjust for renal function. 6. Endocrine: monitor blood sugars. Hypothyroidism. Continue synthroid. 7. Nutrition: cardiac diet 8. Prophylaxis: Scds. No pharmacologic DVT needed b/c eliquis to be resumed 9. Disposition: continue to monitor in ICU> Critical Time Critical Time (minutes): 0 - level 3 hospital follow-up Level of Care: ICU -: 1. The care of a critical patient is a dynamic process. This note is a union contract representative synopsis but static in nature. The timeframe for treatments given in order is not necessarily the actual time these treatments may have been done. 2. This patient requires critical care secondary to ongoing requirements for therapy not offered or safe outside the critical care environment. Transfer to a lower level of care will result in altered life or limb morbidity and mortality. 3. Multidisciplinary rounds completed. 4. ABCDE bundle addressed.
[2019-11-02] MEDS ORDERED: FUROSEMIDE INJ/PF 40 MG/4 ML SDV ONE (14:56)
[2019-11-02] MEDS ORDERED: ATENOLOL 50 MG TABLET PO SCH (15:15)
[2019-11-02] MEDS ORDERED: FUROSEMIDE INJ/PF 40 MG/4 ML SDV IV ONE (16:00)
--- NOTE | 2019-11-02 16:02 | RADIOLOGY REPORT (SQ) ---
EXAM DESCRIPTION: CHEST SINGLE VIEW COMPLETED DATE/TIME: 11/02/2019 3:32 pm REASON FOR STUDY: shortness of air COMPARISON: Chest films 11/01/2019, 10/31/2019 EXAM PARAMETERS: NUMBER OF VIEWS: One view. TECHNIQUE: Single frontal radiographic view of the chest acquired. RADIATION DOSE: NA LIMITATIONS: None. FINDINGS: LUNGS AND PLEURA: No opacities, masses or pneumothorax. No pleural effusion. MEDIASTINUM AND HILAR STRUCTURES: No masses. Contour normal. HEART AND VASCULAR STRUCTURES: Moderate cardiomegaly, stable BONES: Right shoulder replacement unchanged HARDWARE: Right jugular central line tip superior vena cava OTHER: No other significant finding. IMPRESSION: Right jugular central line tip in the superior vena cava. No pneumothorax. Moderate cardiomegaly. No acute infiltrates TECHNICAL DOCUMENTATION: JOB ID: [id number] [employer]- All Rights Reserved Reading location - IP/workstation name: [email or web address]
[2019-11-02] MEDS: CEFTRIAXONE 1 GM/D5W RTU 1 GM/50 ML RTUPB IV SCH (21:07)
[2019-11-03 01:45] LABS: INTERNATIONAL RATION (INR) 1.41; PROTHROMBIN TIME 17.3 SEC (11.4-15.4)
[2019-11-03 04:31] LABS: HEMATOCRIT 30.8 % (36.0-47.0); HEMOGLOBIN 10.8 g/dL (12.0-15.5); MEAN CORPUSCULAR HEMOGLOBIN 32.1 pg (27.0-33.4); MEAN CORPUSCULAR HGB CONC 34.9 g/dL (32.0-36.0); MEAN CORPUSCULAR VOLUME 92 fl (80-97); PLATELET COUNT 112 10^3/uL (150-450); RED BLOOD COUNT 3.35 10^6/uL (3.72-5.28); RED CELL DISTRIBUTION WIDTH 12.6 % (11.5-14.0); WHITE BLOOD COUNT 7.5 10^3/uL (4.0-10.5)
[2019-11-03 04:51] LABS: ANION GAP 6 (5-19); BLOOD UREA NITROGEN 28 mg/dL (7-20); CALCIUM 7.9 mg/dL (8.4-10.2); CARBON DIOXIDE 27 mmol/L (22-30); CHLORIDE 103 mmol/L (98-107); GLUCOSE 85 mg/dL (75-110); POTASSIUM 3.7 mmol/L (3.6-5.0)
[2019-11-03] MEDS: LEVOTHYROXINE SODIUM 0.05 MG TABLET PO SCH (05:34)
[2019-11-03] MEDS: ACETAMINOPHEN 325 MG TABLET PO PRN (07:54)
[2019-11-03] MEDS: ATENOLOL 50 MG TABLET PO SCH ×2 (08:32→18:58)
[2019-11-03] MEDS ORDERED: MAGNESIUM OXIDE 400 MG TABLET PO ONE (09:00)
[2019-11-03] MEDS: LISINOPRIL 10 MG TABLET PO SCH (09:03)
[2019-11-03] MEDS: FUROSEMIDE 20 MG TABLET PO SCH (09:03)
[2019-11-03] MEDS: APIXABAN 2.5 MG TABLET PO SCH (09:04)
--- NOTE | 2019-11-03 10:41 | PDOC CRITICAL CARE PROG REPORT ---
General Date:: 11/03/19 - Critical Care Attending Note Resuscitation Status: Full Code Events in the past 12 to 24 Hours:: Pt doing well. Has no complaints. No acute overnight events. Reason for ICU Addmission:: severe sepsis, ROMEL, UTI - Medications: Medications reviewed and adjusted accordingly: Yes Physical Exam Vital Signs: Temp Pulse Resp BP Pulse Ox 98.6 F 80 21 H 125/73 97 11/03/19 10:00 11/03/19 10:00 11/03/19 10:00 11/03/19 10:00 11/03/19 10:00 Intake & Output 11/02/19 11/03/19 11/04/19 06:59 06:59 06:59 Intake Total 1715 210 Output Total 1110 4070 100 Balance 605 -4070 110 Weight 82.1 kg 81.2 kg Weight/Height Weight 81.2 kg Height 4 ft 11 in General appearance: PRESENT: no acute distress, well-developed, well-nourished Head exam: PRESENT: atraumatic, normocephalic Respiratory exam: PRESENT: clear to auscultation sim, unlabored Cardiovascular exam: PRESENT: irregular rhythm GI/Abdominal exam: PRESENT: soft Extremities exam: PRESENT: other - trace pre-tibial edema Musculoskeletal exam: PRESENT: normal inspection Neurological exam: PRESENT: alert, awake, CN II-XII grossly intact Laboratory/Radiographs Laboratory Results: 11/03/19 04:11 11/03/19 04:11 11/03/19 11/03/19 04:11 04:11 WBC 7.5 RBC 3.35 L Hgb 10.8 L Hct 30.8 L MCV 92 MCH 32.1 MCHC 34.9 RDW 12.6 Plt Count 112 L Sodium 135.7 L Potassium 3.7 Chloride 103 Carbon Dioxide 27 Anion Gap 6 BUN 28 H Creatinine 1.24 Est GFR ( Amer) 49 L Glucose 85 Calcium 7.9 L Magnesium 1.5 L 10/31/19 20:32 Blood Blood Culture (PCR) - Final Escherichia Coli 10/31/19 20:32 Blood Blood Culture - Final Escherichia Coli 10/31/19 21:43 Blood Blood Culture (PCR) - Final Escherichia Coli 10/31/19 21:43 Blood Blood Culture - Final Escherichia Coli 10/31/19 20:33 Clean Catch Midstream Urine Culture - Final Escherichia Coli 10/31/19 20:15 Troponin I 0.072 Impressions: Abdomen/Pelvis CT 10/31/19 22:31 IMPRESSION: 1. No urinary stones or hydronephrosis. 2. Large sliding hiatal hernia. 3. Diverticulosis without inflammatory changes. Chest X-Ray 11/02/19 15:07 IMPRESSION: Right jugular central line tip in the superior vena cava. No pneumothorax. Moderate cardiomegaly. No acute infiltrates All labs, radiographs, diagnostic studies and EKGs were personally reviewed: Yes Assessment and Plan - Diagnosis (1) Septic shock Is this a current diagnosis for this admission?: Yes (2) E coli bacteremia Is this a current diagnosis for this admission?: Yes (3) E. coli UTI Is this a current diagnosis for this admission?: Yes (4) Acute renal failure Qualifiers: Acute renal failure type: unspecified Qualified Code(s): N17.9 - Acute kidney failure, unspecified Is this a current diagnosis for this admission?: Yes (5) Atrial fibrillation Qualifiers: Atrial fibrillation type: longstanding persistent Qualified Code(s): I48.11 - Longstanding persistent atrial fibrillation Is this a current diagnosis for this admission?: Yes (6) Thrombocytopenia Is this a current diagnosis for this admission?: Yes Plan Summary: Assessment: Critically ill 89 yo woman with severe sepsis E.coli bacteremia and UTI, ROMEL, afib. Plan: 1. Respiratory: stable on 2 liters NC nasal cannula. Wean to room air. 2. CV: HTN. afib. Home cardiac meds resumed. s/p lasix yesterday 3. ID: E.coli bacteremia and UTI. Day 3 Rocephin. 4. Renal: ROMEL due to hypotension from septic shock, resolved. IVF. stopped. R esumed home lasix and demario inhibitor 5. Heme: on eliquis for afib 6. Endocrine: monitor blood sugars. Hypothyroidism. Continue synthroid. 7. Nutrition: cardiac diet 8. Prophylaxis: Scds. No pharmacologic DVT needed b/c on eliquis 9. Will d/c central line and lópez. Will get out of bed, ambulate pt, consult PT. 10. Disposition: stable for transfer to telemetry> Critical Time Critical Time (minutes): 0 Level of Care: TELE -: 1. The care of a critical patient is a dynamic process. This note is a community health program representative synopsis but static in nature. The timeframe for treatments given in order is not necessarily the actual time these treatments may have been done. 2. This patient requires critical care secondary to ongoing requirements for therapy not offered or safe outside the critical care environment. Transfer to a lower level of care will result in altered life or limb morbidity and mortality. 3. Multidisciplinary rounds completed. 4. ABCDE bundle addressed.
--- NOTE | 2019-11-03 14:09 | Progress Note ---
Provider Note Provider Note: Transfer service downgraded from ICU to medical floor Received signout from fire services plumber, review chart and medications. Briefly, patient is an 89-year-old female with a history of atrial fibrillation, recurrent urinary tract infections who presented to the hospital with malaise, chills and some encephalopathy and was noted to have a urinary tract infection. Patient was admitted to the ICU for septic shock secondary to UTI required aggressive IV fluids resuscitation and was briefly on Levophed. Patient has been off all pressor for the past almost 2 days. She has been treated with Rocephin. Urinalysis revealed UTI and urine culture grew E. coli. Blood cultures also all positive for E. coli. patient is doing well currently. Denies any shortness of breath fever or chills. Denies any abdominal pain nausea vomiting. Vital signs are stable. Lungs are clear on exam. Abdomen is nontender. Patient is A&O x3 and conversational. Septic shock-resolved E. coli bacteremia secondary to E. coli UTI-continue Rocephin. Check repeat blood cultures. Paroxysmal A. fib-chronic continue Eliquis and atenolol Hypertension-continue lisinopril and Lasix Physical and Occupational Therapy. Plan d/w son-in-law at bedside
[2019-11-03] MEDS: CALCIUM CARBONATE 500 MG TABLET PO SCH (18:59)
[2019-11-03] MEDS: APIXABAN 5 MG TABLET PO SCH (18:59)
[2019-11-03] MEDS: SIMVASTATIN 10 MG TABLET PO SCH (21:40)
[2019-11-03] MEDS: CEFTRIAXONE 1 GM/D5W RTU 1 GM/50 ML RTUPB IV SCH (21:41)
[2019-11-04] MEDS: LISINOPRIL 10 MG TABLET PO SCH ×3 (00:59→21:28)
[2019-11-04] MEDS: LEVOTHYROXINE SODIUM 0.05 MG TABLET PO SCH (05:08)
[2019-11-04 07:19] LABS: ANION GAP 8 (5-19); BLOOD UREA NITROGEN 24 mg/dL (7-20); CALCIUM 7.9 mg/dL (8.4-10.2); CARBON DIOXIDE 25 mmol/L (22-30); CHLORIDE 101 mmol/L (98-107); GLUCOSE 87 mg/dL (75-110); POTASSIUM 3.7 mmol/L (3.6-5.0)
[2019-11-04 07:47] LABS: HEMATOCRIT 28.9 % (36.0-47.0); HEMOGLOBIN 10.1 g/dL (12.0-15.5); MEAN CORPUSCULAR HEMOGLOBIN 31.7 pg (27.0-33.4); MEAN CORPUSCULAR VOLUME 91 fl (80-97); PLATELET COUNT 143 10^3/uL (150-450); RED BLOOD COUNT 3.18 10^6/uL (3.72-5.28); WHITE BLOOD COUNT 8.3 10^3/uL (4.0-10.5)
[2019-11-04] MEDS: FUROSEMIDE 20 MG TABLET PO SCH (10:59)
[2019-11-04] MEDS: MAGNESIUM OXIDE 400 MG TABLET PO SCH (10:59)
[2019-11-04] MEDS: APIXABAN 5 MG TABLET PO SCH ×2 (10:59→18:14)
[2019-11-04] MEDS: POTASSIUM CHLORIDE 10 MEQ TABLET.ER PO SCH (10:59)
[2019-11-04] MEDS: MULTIVITAMIN TABLET PO SCH (11:00)
[2019-11-04] MEDS: CALCIUM CARBONATE 500 MG TABLET PO SCH ×2 (11:00→18:14)
[2019-11-04] MEDS: ATENOLOL 50 MG TABLET PO SCH ×2 (11:00→18:14)
--- NOTE | 2019-11-04 14:10 | PDOC PROGRESS REPORT ---
Subjective Progress Note for:: 11/04/19 Subjective:: Patient feels well today. Denies any abdominal pain. Denies fevers. Worked with physical therapy. Reason For Visit: SEVERE SEPSIS Physical Exam Vital Signs: Temp Pulse Resp BP Pulse Ox 98.2 F 76 16 127/77 H 94 11/04/19 08:17 11/04/19 13:31 11/04/19 13:31 11/04/19 08:17 11/04/19 13:31 Intake & Output 11/03/19 11/04/19 11/05/19 06:59 06:59 06:59 Intake Total 50 740 Output Total 4070 1075 Balance -4020 -335 Weight 81.2 kg 83.2 kg General appearance: PRESENT: no acute distress, cooperative Neck exam: ABSENT: JVD Respiratory exam: PRESENT: clear to auscultation sim, unlabored. ABSENT: tachypnea, wheezes Cardiovascular exam: PRESENT: RRR, +S1, +S2. ABSENT: tachycardia GI/Abdominal exam: PRESENT: normal bowel sounds, soft. ABSENT: rebound, rigid, tenderness Extremities exam: ABSENT: calf tenderness Neurological exam: PRESENT: alert, awake Results Laboratory Results: 11/04/19 06:42 11/04/19 06:42 11/04/19 11/04/19 06:42 06:42 WBC 8.3 RBC 3.18 L Hgb 10.1 L Hct 28.9 L MCV 91 MCH 31.7 MCHC 35.0 RDW 13.0 Plt Count 143 L Sodium 133.8 L Potassium 3.7 Chloride 101 Carbon Dioxide 25 Anion Gap 8 BUN 24 H Creatinine 1.02 Est GFR ( Amer) > 60 Glucose 87 Calcium 7.9 L Magnesium 1.6 10/31/19 20:32 Blood Blood Culture (PCR) - Final Escherichia Coli 10/31/19 20:32 Blood Blood Culture - Final Escherichia Coli 10/31/19 21:43 Blood Blood Culture (PCR) - Final Escherichia Coli 10/31/19 21:43 Blood Blood Culture - Final Escherichia Coli 10/31/19 20:15 Troponin I 0.072 Impressions: Abdomen/Pelvis CT 10/31/19 22:31 IMPRESSION: 1. No urinary stones or hydronephrosis. 2. Large sliding hiatal hernia. 3. Diverticulosis without inflammatory changes. Chest X-Ray 11/02/19 15:07 IMPRESSION: Right jugular central line tip in the superior vena cava. No pneumothorax. Moderate cardiomegaly. No acute infiltrates Assessment and Plan - Diagnosis (1) E. coli UTI Is this a current diagnosis for this admission?: Yes Plan: Complicated UTI with systemic signs and symptoms. Patient has been afebrile for 48 hours. s/p Rocephin x3 days. Will DC Rocephin and start on cefazolin which E. coli sensitive to based off susceptibility report (2) E coli bacteremia Is this a current diagnosis for this admission?: Yes Plan: Blood cultures repeated yesterday. We will follow-up. Plan to discharge once blood cultures are negative for 48 hours. Currently receiving antibiotics. Anticipate will need antibiotics for 7 more days. (3) Ambulatory dysfunction Is this a current diagnosis for this admission?: Yes Plan: Evaluated by physical therapy who recommended home health. Discharge planning was consulted and are going to set up home health (4) Chronic atrial fibrillation Is this a current diagnosis for this admission?: Yes Plan: Continue atenolol and Eliquis. Currently in sinus rhythm. (5) Hypertension Qualifiers: Hypertension type: essential hypertension Qualified Code(s): I10 - Essential (primary) hypertension Is this a current diagnosis for this admission?: Yes Plan: Continue with lisinopril and Lasix (6) Obesity (BMI 30-39.9) Is this a current diagnosis for this admission?: Yes (7) Septic shock Is this a current diagnosis for this admission?: Yes Plan: Secondary to UTI on admission. Resolved currently. - Time Time Spent with patient: 35 or more minutes
[2019-11-04] MEDS: CEFAZOLIN SODIUM 2 GM in DEXTROSE 5%-WATER 100 ML IV SCH ×2 (16:53→21:28)
[2019-11-04] MEDS ORDERED: CEFAZOLIN 2 GM/D5W RTU 2 GM/50 ML RTUPB IV SCH (18:00)
[2019-11-04] MEDS: SIMVASTATIN 10 MG TABLET PO SCH (21:28)
[2019-11-04] MEDS ORDERED: CALCIUM CARBONATE 500 MG TAB.CHEW PO PRN (22:19)
[2019-11-05] MEDS: CEFAZOLIN SODIUM 2 GM in DEXTROSE 5%-WATER 100 ML IV SCH ×2 (05:14→14:55)
[2019-11-05] MEDS: LEVOTHYROXINE SODIUM 0.05 MG TABLET PO SCH (05:14)
[2019-11-05] MEDS: MAGNESIUM OXIDE 400 MG TABLET PO SCH (10:56)
[2019-11-05] MEDS: APIXABAN 5 MG TABLET PO SCH ×2 (10:56→17:32)
[2019-11-05] MEDS: MULTIVITAMIN TABLET PO SCH (10:57)
[2019-11-05] MEDS: POTASSIUM CHLORIDE 10 MEQ TABLET.ER PO SCH (10:57)
[2019-11-05] MEDS: ATENOLOL 50 MG TABLET PO SCH ×2 (10:57→17:32)
[2019-11-05] MEDS: CALCIUM CARBONATE 500 MG TABLET PO SCH ×2 (10:57→17:32)
[2019-11-05] MEDS: LISINOPRIL 10 MG TABLET PO SCH (10:57)
[2019-11-05] MEDS: FUROSEMIDE 20 MG TABLET PO SCH (10:59)
[2019-11-05 14:26] LABS: HEMOGLOBIN 10.3 g/dL (12.0-15.5); MEAN CORPUSCULAR HEMOGLOBIN 31.9 pg (27.0-33.4); MEAN CORPUSCULAR HGB CONC 35.3 g/dL (32.0-36.0); MEAN CORPUSCULAR VOLUME 90 fl (80-97); PLATELET COUNT 182 10^3/uL (150-450); RED BLOOD COUNT 3.21 10^6/uL (3.72-5.28); RED CELL DISTRIBUTION WIDTH 12.7 % (11.5-14.0); WHITE BLOOD COUNT 8.9 10^3/uL (4.0-10.5)
[2019-11-05 14:41] LABS: ANION GAP 7 (5-19); BLOOD UREA NITROGEN 17 mg/dL (7-20); CALCIUM 8.4 mg/dL (8.4-10.2); CARBON DIOXIDE 28 mmol/L (22-30); CHLORIDE 101 mmol/L (98-107); GLUCOSE 159 mg/dL (75-110); POTASSIUM 4.4 mmol/L (3.6-5.0)
[2019-11-05 16:47] VITALS: BP 118/45
--- NOTE | 2019-11-05 17:03 | PDOC DISCHARGE SUMMARY ---
Impression - Admit/DC Date/PCP Admission Date/Primary Care Provider: 11/01/19 01:23 Discharge Date: 11/05/19 - Discharge Diagnosis (1) E. coli UTI Is this a current diagnosis for this admission?: Yes (2) E coli bacteremia Is this a current diagnosis for this admission?: Yes (3) Ambulatory dysfunction Is this a current diagnosis for this admission?: Yes (4) Chronic atrial fibrillation Is this a current diagnosis for this admission?: Yes (5) Hypertension Is this a current diagnosis for this admission?: Yes (6) Obesity (BMI 30-39.9) Is this a current diagnosis for this admission?: Yes (7) Septic shock Is this a current diagnosis for this admission?: Yes - Additional Information Resuscitation Status: Full Code Discharge Diet: Regular Discharge Activity: Activity As Tolerated Prescriptions: Cephalexin [Keflex] 500 mg PO BID 6 Days #12 capsule Home Medications: Apixaban [Eliquis 5 mg Tablet] 5 mg PO Q12 11/01/19 Atenolol [Tenormin] 12.5 mg PO NOON 11/01/19 Atenolol [Tenormin] 25 mg PO QAM 11/01/19 Calcium Carbonate [Calcium] 600 mg PO Q12 11/01/19 Furosemide [Lasix 20 mg Tablet] 20 mg PO DAILY 11/01/19 Levothyroxine Sodium 50 mcg PO Q6AM 11/01/19 Lisinopril [Zestril] 20 mg PO Q12 11/01/19 Multivitamin [Multiple Vitamins] 1 tab PO DAILY 11/01/19 Potassium Chloride [Klor-Con M20] 20 meq PO DAILY 11/01/19 Simvastatin 20 mg PO QHS 11/01/19 Cephalexin [Keflex] 500 mg PO BID 6 Days #12 capsule 11/05/19 History of Present Illiness History of Present Illness: MONICA KNUTSON is a 89 year old female with a past medical history of hypothyroidism, hypertension atrial fibrillation on Eliquis. Patient presents with 48 hours of generalized weakness and lethargy prompting evaluation emergency room where she is found to have hypotension with a systolic pressure in the 80s, pyuria and acute renal failure. She started on empiric antibiotics and referred to the hospitalist for admission. Patient denies recent antibiotic use she admits to urgency and increased frequency of urination. She denies shortness of breath or chest pain. She receives 3 L of normal saline and 1 g of Rocephin improving her blood pressure she admittedly feels better and admitted to the hospitalist for admission. Hospital Course Hospital Course: Presented to the hospital with malaise, chills and some encephalopathy and was noted to have a urinary tract infection based of a positive urinalysis. Subsequently found to be in septic shock with lactic acidosis, fever, tachycardia and encephalopathy and persistent hypotension despite aggressive IV fluid resuscitation. Patient was admitted under hospitalist service but immediately upgraded to the ICU for septic shock secondary to UTI required aggressive IV fluids resuscitation and was briefly on Levophed. Patient was later taken off Levophed. She was treated with Rocephin. Urinalysis revealed UTI and urine culture grew E. coli. Blood cultures also all positive for E. coli. Of note patient blood pressure stabilized on patient's acute metabolic encephalopathy resolved, patient was downgraded to the general medical floor back on the hospitalist service. Culture susceptibilities showed that the E. coli was susceptible to cefazolin. Patient had already received 3 days of ceftriaxone when the escalated to Ance[facility]. Repeat blood cultures have now been negative at 48 hours. Patient has been afebrile for about 3 days now. Patient was evaluated by physical therapy who recommended home health which has been set up for physical and occupational therapy at home. Patient is being discharged in stable conditions to continue on Keflex for 6 days to complete a total of 10- day course of antibiotics treatment for UTI with E. coli bacteremia. Physical Exam Vital Signs: Temp Pulse Resp BP Pulse Ox 98.2 F 70 17 118/45 L 96 11/05/19 15:12 11/05/19 15:12 11/05/19 15:12 11/05/19 15:12 11/05/19 15:12 Intake & Output 11/04/19 11/05/19 11/06/19 06:59 06:59 06:59 Intake Total 740 1080 Output Total 1075 1900 Balance -335 -820 Weight 83.2 kg 83 kg General appearance: PRESENT: no acute distress, cooperative Neck exam: ABSENT: JVD Respiratory exam: PRESENT: clear to auscultation sim GI/Abdominal exam: PRESENT: soft. ABSENT: tenderness Results Laboratory Results: WBC 8.9 10^3/uL (4.0-10.5) 11/05/19 13:38 RBC 3.21 10^6/uL (3.72-5.28) L 11/05/19 13:38 Hgb 10.3 g/dL (12.0-15.5) L 11/05/19 13:38 Hct 29.0 % (36.0-47.0) L 11/05/19 13:38 MCV 90 fl (80-97) 11/05/19 13:38 MCH 31.9 pg (27.0-33.4) 11/05/19 13:38 MCHC 35.3 g/dL (32.0-36.0) 11/05/19 13:38 RDW 12.7 % (11.5-14.0) 11/05/19 13:38 Plt Count 182 10^3/uL (150-450) 11/05/19 13:38 Lymph % (Auto) Not Reportable 11/02/19 03:50 [place] % (Auto) Not Reportable 11/02/19 03:50 Eos % (Auto) Not Reportable 11/02/19 03:50 Baso % (Auto) Not Reportable 11/02/19 03:50 Absolute Neuts (auto) Not Reportable 11/02/19 03:50 Absolute Lymphs (auto) Not Reportable 11/02/19 03:50 Absolute Monos (auto) Not Reportable 11/02/19 03:50 Absolute Eos (auto) Not Reportable 11/02/19 03:50 Absolute Basos (auto) Not Reportable 11/02/19 03:50 Total Counted 100 11/02/19 03:50 Seg Neutrophils % Not Reportable 11/02/19 03:50 Seg Neuts % (Manual) 63 % (42-78) 11/02/19 03:50 Band Neutrophils % 3 % (3-5) 11/02/19 03:50 Lymphocytes % (Manual) 15 % (13-45) 11/02/19 03:50 Atypical Lymphs % 2 % (0) 11/01/19 07:37 Monocytes % (Manual) 18 % (3-13) H 11/02/19 03:50 Eosinophils % (Manual) 1 % (0-6) 11/02/19 03:50 Basophils % (Manual) 0 % (0-2) 11/02/19 03:50 Abs Neuts (Manual) 5.9 10^3/uL (1.7-8.2) 11/02/19 03:50 Abs Lymphs (Manual) 1.3 10^3/uL (0.5-4.7) 11/02/19 03:50 Abs Monocytes (Manual) 1.6 10^3/uL (0.1-1.4) H 11/02/19 03:50 Absolute Eos (Manual) 0.1 10^3/uL (0.0-0.6) 11/02/19 03:50 Abs Basophils (Manual) 0.0 10^3/uL (0.0-0.2) 11/02/19 03:50 Toxic Granulation 1+ 11/02/19 03:50 Toxic Vacuolation PRESENT 11/02/19 03:50 Platelet Comment DECREASED 11/02/19 03:50 Poikilocytosis SLIGHT 11/02/19 03:50 Tear Drop Cells SLIGHT 11/02/19 03:50 Ovalocytes SLIGHT 11/02/19 03:50 Schistocytes SLIGHT 11/02/19 03:50 PT 17.3 SEC (11.4-15.4) H 11/03/19 01:23 INR 1.41 11/03/19 01:23 APTT 41.4 SEC (23.5-35.8) H 10/31/19 20:15 Sodium 135.9 mmol/L (137-145) L 11/05/19 13:38 Potassium 4.4 mmol/L (3.6-5.0) 11/05/19 13:38 Chloride 101 mmol/L (98-107) 11/05/19 13:38 Carbon Dioxide 28 mmol/L (22-30) 11/05/19 13:38 Anion Gap 7 (5-19) 11/05/19 13:38 BUN 17 mg/dL (7-20) 11/05/19 13:38 Creatinine 0.97 mg/dL (0.52-1.25) 11/05/19 13:38 Est GFR ( Amer) > 60 (>60) 11/05/19 13:38 Est GFR (MDRD) Non-Af 54 (>60) L 11/05/19 13:38 Glucose 159 mg/dL (75-110) H 11/05/19 13:38 Lactic Acid 0.9 mmol/L (0.7-2.1) 11/01/19 07:37 Calcium 8.4 mg/dL (8.4-10.2) 11/05/19 13:38 Magnesium 1.6 mg/dL (1.6-2.3) 11/05/19 13:38 Total Bilirubin 0.6 mg/dL (0.2-1.3) 10/31/19 20:15 Direct Bilirubin 0.4 mg/dL (0.0-0.4) 10/31/19 20:15 Neonat Total Bilirubin Not Reportable 10/31/19 20:15 Neonat Direct Bilirubin Not Reportable 10/31/19 20:15 Neonat Indirect Bili Not Reportable 10/31/19 20:15 AST 45 U/L (14-36) H 10/31/19 20:15 ALT 22 U/L (<35) 10/31/19 20:15 Alkaline Phosphatase 94 U/L (38-126) 10/31/19 20:15 Troponin I 0.072 ng/mL 10/31/19 20:15 Total Protein 6.6 g/dL (6.3-8.2) 10/31/19 20:15 Albumin 3.4 g/dL (3.5-5.0) L 10/31/19 20:15 TSH 2.66 uIU/mL (0.47-4.68) 11/02/19 03:50 Urine Color CHASITY 10/31/19 20:33 Urine Appearance CLOUDY 10/31/19 20:33 Urine pH 5.0 (5.0-9.0) 10/31/19 20:33 Ur Specific [place] 1.023 10/31/19 20:33 Urine Protein 100 mg/dL (NEGATIVE) H 10/31/19 20:33 Urine Glucose (UA) NEGATIVE mg/dL (NEGATIVE) 10/31/19 20: Urine Ketones NEGATIVE mg/dL (NEGATIVE) 10/31/19 20:33 Urine Blood LARGE (NEGATIVE) H 10/31/19 20:33 Urine Nitrite NEGATIVE (NEGATIVE) 10/31/19 20:33 Urine Bilirubin NEGATIVE (NEGATIVE) 10/31/19 20:33 Urine Urobilinogen NEGATIVE mg/dL (<2.0) 10/31/19 20:33 Ur Leukocyte Esterase LARGE (NEGATIVE) H 10/31/19 20:33 Urine WBC (Auto) >182 /HPF 10/31/19 20:33 Urine RBC (Auto) >182 /HPF 10/31/19 20:33 Urine Bacteria (Auto) TRACE /HPF 10/31/19 20:33 Urine WBC Clumps MANY /HPF 10/31/19 20:33 Squamous Epi Cells Auto 3 /HPF 10/31/19 20:33 U Non-Squamous Epis Auto 4 /HPF 10/31/19 20:33 Urine Mucus (Auto) RARE /LPF 10/31/19 20:33 Urine Ascorbic Acid NEGATIVE (NEGATIVE) 10/31/19 20:33 10/31/19 20:15 Troponin I 0.072 Impressions: Chest X-Ray 10/31/19 19:34 IMPRESSION: No acute disease. copyright 2011 [employer]- All Rights Reserved Abdomen/Pelvis CT 10/31/19 22:31 IMPRESSION: 1. No urinary stones or hydronephrosis. 2. Large sliding hiatal hernia. 3. Diverticulosis without inflammatory changes. Chest X-Ray 11/01/19 00:00 IMPRESSION: No acute disease. Chest X-Ray 11/02/19 15:07 IMPRESSION: Right jugular central line tip in the superior vena cava. No pneumothorax. Moderate cardiomegaly. No acute infiltrates Plan Time Spent: Less than 30 Minutes Stroke Is this a Stroke Patient?: No Acute Heart Failure - Is this a Heart Failure Patient?: No
== END 2019-11-05 19:05 | disposition home health service (06) | DRG 871 ==
LOC: ER 19:04 → EH 11-01 01:23 → ICU 11-01 09:24 → 5 11-03 12:17
PROVIDERS: ADMIT Internal Medicine; ATTEND Internal Medicine
PROC: 02H633Z Insertion of Infusion Device into Right Atrium, Percutaneous Approach (ICD-10-PCS; principal; 2019-11-01)
DX: A41.51 Sepsis due to Escherichia coli [E. coli] (principal); R65.21 Severe sepsis with septic shock; G93.41 Metabolic encephalopathy; N30.01 Acute cystitis with hematuria; N17.9 Acute kidney failure, unspecified; I48.11 Longstanding persistent atrial fibrillation; D69.6 Thrombocytopenia, unspecified; I10 Essential (primary) hypertension; J44.9 Chronic obstructive pulmonary disease, unspecified; E78.5 Hyperlipidemia, unspecified; E66.9 Obesity, unspecified; M19.90 Unspecified osteoarthritis, unspecified site; E89.0 Postprocedural hypothyroidism; Z79.899 Other long term (current) drug therapy; Z88.0 Allergy status to penicillin; Z90.710 Acquired absence of both cervix and uterus; Z79.02 Long term (current) use of antithrombotics/antiplatelets
CPT/HCPCS: 36415; 71045; 71046; 74176; 80048; 80053; 81001; 83605; 83735; 84443; 84484; 85025; 85027; 85610; 85730; 87040; 87077; 87086; 87088; 87150; 87186; 93005; 93010; 94799; 96361; 96365; 99291; C1751; C1769; J0690; J0696; J1642; J1940; J3370; J3490; J7030; J7060; J7120; J7620